=== PATIENT | female | born 1990 | race Caucasian/White ===

== ENCOUNTER 2021-05-20 13:38 | Emergency (ER) | payer MEDICAID ==
--- NOTE | 2021-05-20 16:17 | Emergency Department Report ---
- General Chief complaint: Skin/Abscess/Foreign Body Stated complaint: NECK PAIN Time Seen by Provider: 05/20/21 14:54 Source: patient, EMS Mode of arrival: Ambulatory Limitations: No Limitations - History of Present Illness Initial comments: 31-year-old female presents to the emergency room stating she believes she was bitten by a bug to her neck. Patient's not sure when this had happened but her boyfriend noticed it today. Patient denies any pain she is states that it does not itch much. Has no fever no chills no nausea no vomiting. Patient states she lives in a fpc and was brought in by EMS. Patient has a history of depression anxiety bipolar. Past surgeries cochlear implant nasal surgery and cholecystectomy complaint: insect bite/sting -: unknown Tetanus Up to Date: yes Location: neck (Posterior) Severity: mild Improves with: none Worsens with: none Context: other (Concern for insect bite) Associated symptoms: denies other symptoms - Related Data Allergies Allergy/AdvReac Type Severity Reaction Status Date / Time No Known Allergies Allergy Unverified 05/20/21 13:44 Abscess Boil HPI - HPI Chief Complaint: Skin/Abscess/Foreign Body Stated Complaint: NECK PAIN Time Seen by Provider: 05/20/21 14:54 Allergies/Adverse Reactions: Allergies Allergy/AdvReac Type Severity Reaction Status Date / Time No Known Allergies Allergy Unverified 05/20/21 13:44 ED Review of Systems ROS: Stated complaint: NECK PAIN Other details as noted in HPI Comment: All other systems reviewed and negative ED Past Medical Hx - Past Medical History Previous Medical History?: Yes Hx Psychiatric Treatment: Yes (depression, Anxiety, Bipolar disorder) - Surgical History Past Surgical History?: Yes Hx Cholecystectomy: Yes (-2020) Additional Surgical History: cochlear implant, Nasal surgery - Social History Smoking Status: Never Smoker Substance Use Type: Alcohol, Marijuana ED Physical Exam - General Limitations: No Limitations General appearance: alert, in no apparent distress - Head Head exam: Present: atraumatic, normocephalic - Eye Eye exam: Present: normal appearance - ENT ENT exam: Present: mucous membranes moist - Neck Neck exam: Present: full ROM, other (Rash to the posterior distal neck nontender to touch mild erythematous.). Absent: tenderness, lymphadenopathy - Respiratory Respiratory exam: Absent: accessory muscle use - Cardiovascular Cardiovascular Exam: Present: regular rate - Extremities Exam Extremities exam: Present: full ROM - Neurological Exam Neurological exam: Present: alert, oriented X3, normal gait - Psychiatric Psychiatric exam: Present: normal affect, normal mood - Skin Skin exam: Present: warm, dry, intact, normal color. Absent: rash ED Course Vital Signs 05/20/21 14:40 Temperature 98.5 F Pulse Rate 78 Respiratory 20 Rate Blood Pressure 114/58 O2 Sat by Pulse 97 Oximetry ED Medical Decision Making - Medical Decision Making 31-year-old female presents to the emergency room stating she believes she was bitten by a bug to her neck. Patient's not sure when this had happened but her boyfriend noticed it today. Patient denies any pain she is states that it does not itch much. Has no fever no chills no nausea no vomiting. Patient states she lives in a fpc and was brought in by EMS. Patient has a history of depression anxiety bipolar. Past surgeries cochlear implant nasal surgery and cholecystectomy Discussed with patient she can try some [id number] hydrocortisone. Follow-up with her primary care provider Critical care attestation.: If time is entered above; I have spent that time in minutes in the direct care of this critically ill patient, excluding procedure time. ED Disposition Clinical Impression: Rash and nonspecific skin eruption Disposition: DC-01 TO HOME OR SELFCARE Is pt being admited?: No Does the pt Need Aspirin: No Condition: Stable Instructions: Rash, Adult, [id number] Additional Instructions: You can use [id number] hydrocortisone cream 3 times a day. Tylenol or ibuprofen as needed for pain. Referrals: Your, primary care provider [Other] - 3-5 Days
== END 2021-05-20 16:51 | disposition home or self-care (01) ==
LOC: ED 13:38
CPT/HCPCS: 99283

== ENCOUNTER 2021-05-26 11:48 | Emergency (ER) | payer MEDICAID ==
--- NOTE | 2021-05-26 12:08 | Emergency Department Report ---
ED General Adult HPI - General Chief complaint: Dyspnea/Respdistress Stated complaint: SEIZURE Time Seen by Provider: 05/26/21 12:03 Source: patient Mode of arrival: Stretcher Limitations: No Limitations - History of Present Illness Initial comments: 31-year-old female, history of depression, anxiety, bipolar disorder, and asthma, presents to ED from her [place] [facility] for evaluation. EMS was called for seizure-like activity. Patient denies history of seizures. Patient is actively, purposefully, shaking her arms and head. When I tell patient to stop shaking, she does. Patient then states she felt like she was having an asthma attack earlier. She used her inhaler at the [place] [facility]. Patient has no other complaints. -: This afternoon Location: chest Improves with: medication Worsens with: none Associated Symptoms: shortness of breath. denies: cough, fever/chills - Related Data Previous Rx's Medication Instructions Recorded Last Taken Type Albuterol Sulfate [Proventil Hfa] 2 puff IH Q4HR PRN #1 hfa.aer.ad 05/26/21 Unknown Rx Azithromycin [Zithromax TAB] 250 mg PO QDAY 4 Days #4 tablet 05/26/21 Unknown Rx Benzonatate [Tessalon Perles] 100 mg PO Q8HR PRN #20 capsule 05/26/21 Unknown Rx Allergies Allergy/AdvReac Type Severity Reaction Status Date / Time Sulfa (Sulfonamide Allergy Anaphylaxis Verified 05/26/21 13:47 Antibiotics) ED Review of Systems ROS: Stated complaint: SEIZURE Other details as noted in HPI Comment: All other systems reviewed and negative Constitutional: denies: fever Respiratory: wheezing Cardiovascular: denies: chest pain ED Past Medical Hx - Past Medical History Previous Medical History?: Yes Hx Psychiatric Treatment: Yes (depression, Anxiety, Bipolar disorder) Hx Asthma: Yes Additional medical history: heart murmur - Surgical History Hx Cholecystectomy: Yes () Additional Surgical History: cochlear implant, Nasal surgery - Social History Smoking Status: Never Smoker Substance Use Type: Alcohol, Marijuana - Medications Home Medications: Home Medications Medication Instructions Recorded Confirmed Last Taken Type Albuterol Sulfate [Proventil Hfa] 2 puff IH Q4HR PRN #1 hfa.aer.ad 05/26/21 Unknown Rx Azithromycin [Zithromax TAB] 250 mg PO QDAY 4 Days #4 tablet 05/26/21 Unknown Rx Benzonatate [Tessalon Perles] 100 mg PO Q8HR PRN #20 capsule 05/26/21 Unknown Rx ED Physical Exam - General Limitations: No Limitations General appearance: alert, in no apparent distress - Head Head exam: Present: atraumatic, normocephalic - Eye Eye exam: Present: normal appearance, EOMI - ENT ENT exam: Present: mucous membranes moist - Neck Neck exam: Present: normal inspection - Respiratory Respiratory exam: Present: normal lung sounds bilaterally. Absent: respiratory distress - Cardiovascular Cardiovascular Exam: Present: regular rate, normal rhythm - GI/Abdominal GI/Abdominal exam: Present: soft. Absent: distended, tenderness - Extremities Exam Extremities exam: Present: normal inspection - Neurological Exam Neurological exam: Present: alert, oriented X3 - Psychiatric Psychiatric exam: Present: normal affect, normal mood - Skin Skin exam: Present: warm, dry, intact, normal color ED Course Vital Signs 05/26/21 05/26/21 05/26/21 12:00 13:49 14:44 Temperature 98.4 F Pulse Rate 90 78 90 Respiratory 18 17 17 Rate Blood Pressure 112/54 108/72 116/72 [Left] O2 Sat by Pulse 98 97 97 Oximetry ED Medical Decision Making - Lab Data Result diagrams: 05/26/21 12:10 05/26/21 12:10 - Radiology Data Radiology results: report reviewed, image reviewed - Medical Decision Making 41-year-old female presents to ED with pseudoseizure. When instructed to stop shaking, patient follows instructions. Patient ambulated to bathroom back to her room without assistance. Chest x-ray shows infiltrate. Patient is in no respiratory distress. O2 sats are normal. Labs are unremarkable. Patient given Rocephin and azithromycin here in the ED. She will be discharged with azithromycin. Outpatient follow-up advised, return precautions given. - Differential Diagnosis Pseudoseizure, pneumonia, asthma Critical care attestation.: If time is entered above; I have spent that time in minutes in the direct care of this critically ill patient, excluding procedure time. ED Disposition Clinical Impression: Pseudoseizure, Pneumonia Disposition: DC-01 TO HOME OR SELFCARE Is pt being admited?: No Condition: Stable Instructions: Community-Acquired Pneumonia, Adult, [id number], Bacterial Pneumonia (ED) Prescriptions: Albuterol Sulfate [Proventil Hfa] 2 puff IH Q4HR PRN #1 hfa.aer.ad PRN Reason: Wheezing Benzonatate [Tessalon Perles] 100 mg PO Q8HR PRN #20 capsule PRN Reason: Cough Azithromycin [Zithromax TAB] 250 mg PO QDAY 4 Days #4 tablet Referrals: PRIMARY CAREMD [Primary Care Provider] - 3-[address] [facility] [Provider Group] - 3-5 Days KELLIE WAHL MD [Staff Physician] - 3-5 Days Time of Disposition: 13:58
--- NOTE | 2021-05-26 12:26 | XRay Report ---
CHEST 1 VIEW INDICATION: sob. COMPARISON: None. FINDINGS: Support devices: None. Heart: Normal. Lungs/Pleura: There is diffuse opacification the left lower hemithorax with silhouetting of the left hemidiaphragm. Right lung is clear. IMPRESSION: 1. Consolidation in the left lower lobe concerning for pneumonia. Signer Name: Hany Reed MD Signed: 05/26/2021 12:21 PM Workstation Name: [id number]
[2021-05-26 12:46] LABS: Basophils % (Auto) 0.5 % (0.0-1.8); Eosinophils % (Auto) 0.7 % (0.0-4.3); Hematocrit 41.9 % (30.3-42.9); Hemoglobin 14.8 gm/dl (10.1-14.3); Lymphocytes % (Auto) 30.3 % (13.4-35.0); Mean Corpuscular HGB Conc 35 % (30-34); Mean Corpuscular Volume 87 fl (79-97); Monocytes # (Auto) 0.8 K/mm3 (0.0-0.8); Monocytes % (Auto) 11.6 % (0.0-7.3); Platelet Count 297 K/mm3 (140-440); Red Blood Count 4.82 M/mm3 (3.65-5.03); Red Cell Distribution Width 13.8 % (13.2-15.2)
[2021-05-26 13:05] LABS: Blood Urea Nitrogen 8 mg/dL (7-17); Calcium 9.3 mg/dL (8.4-10.2); Hemolysis Index 3
[2021-05-26 13:23] LABS: BUN/Creatinine Ratio 11
[2021-05-26] MEDS ORDERED: AZITHROMYCIN 250 MG TAB PO ONE (13:31)
[2021-05-26] MEDS ORDERED: LIDOCAINE-MPF (1%) 10 MG/1 ML VIAL 5 ML INFILTRATI ONE (13:31)
[2021-05-26 14:45] VITALS: BP 116/72
== END 2021-05-26 14:56 | disposition home or self-care (01) ==
LOC: ED 11:48
DX: J18.9 Pneumonia, unspecified organism (principal); R56.9 Unspecified convulsions; F32.9 Major depressive disorder, single episode, unspecified; J45.909 Unspecified asthma, uncomplicated; F12.10 Cannabis abuse, uncomplicated; Z90.49 Acquired absence of other specified parts of digestive tract; Z98.890 Other specified postprocedural states; Z79.899 Other long term (current) drug therapy; Z79.2 Long term (current) use of antibiotics; Z88.2 Allergy status to sulfonamides
CPT/HCPCS: 36415; 71045; 80048; 85025; 96372; 99284; J0696

== ENCOUNTER 2021-05-30 23:26 | Emergency (ER) | payer MEDICAID ==
[2021-05-31 01:23] VITALS: BP 115/76
--- NOTE | 2021-05-31 05:34 | Emergency Department Report ---
[facility] Chief Complaint: Eye Problems Stated Complaint: GENERAL UNWELL FEELING Side: Bilateral Severity: mild Symptoms: Yes Eye Itching, Yes Eye Redness, No Eye Pain, No Mucous Drainage, No Purulent Drainage, No Blurred Vision, No Preceding URI, No Contact Lens Use ED Review of Systems ROS: Stated complaint: GENERAL UNWELL FEELING Other details as noted in HPI Comment: All other systems reviewed and negative ED Past Medical Hx - Past Medical History Previous Medical History?: Yes Hx Psychiatric Treatment: Yes (depression, Anxiety, Bipolar disorder) Hx Asthma: Yes Additional medical history: heart murmur - Surgical History Past Surgical History?: Yes Hx Cholecystectomy: Yes (-2020) Additional Surgical History: cochlear implant, Nasal surgery - Social History Smoking Status: Never Smoker Substance Use Type: Alcohol, Marijuana - Medications Home Medications: Home Medications Medication Instructions Recorded Confirmed Last Taken Type Albuterol Sulfate [Proventil Hfa] 2 puff IH Q4HR PRN #1 hfa.aer.ad 05/26/21 Unknown Rx Azithromycin [Zithromax TAB] 250 mg PO QDAY 4 Days #4 tablet 05/26/21 Unknown Rx Benzonatate [Tessalon Perles] 100 mg PO Q8HR PRN #20 capsule 05/26/21 Unknown Rx Olopatadine HCl [Pataday 0.2%] 1 drop OP QDAY #1 drops 05/31/21 Unknown Rx [facility] Exam - Exam General: Vital signs noted. No distress. Alert and acting appropriately. Eye Exam: Both Injection, Neither Mucous Discharge, Neither Purulent Discharge, Neither Fluorescein Uptake, Neither Fluorescein Uptake (slit lamp), Neither Cell/Flare (slit lamp), Neither Corneal Edema, Neither Photophobia HEENT: No Nasal Congestion, No Pharyngeal Erythema Remainder of HEENT: Abnormal Lungs: Yes Clear Lung Sounds, Yes Good Air Exchange, No Wheezes, No Stridor, No Nasal Flaring Exam: 31-year-old female [facility] emerge department complaining itchy eyes when she wakes up in the morning with some injection and redness she was not evaluated emergency department. No discharge no blurry vision no loss of vision no fever, chills, sweats. ED Course Vital Signs 05/31/21 01:22 Temperature 97.8 F Pulse Rate 76 Respiratory 18 Rate Blood Pressure 115/76 O2 Sat by Pulse 95 Oximetry Critical care attestation.: If time is entered above; I have spent that time in minutes in the direct care of this critically ill patient, excluding procedure time. ED Disposition Clinical Impression: Conjunctivitis Disposition: DC-01 TO HOME OR SELFCARE Is pt being admited?: No Does the pt Need Aspirin: No Condition: Stable Instructions: Allergic Conjunctivitis, Adult, Hmcs-lb-Ofgm Prescriptions: Olopatadine HCl [Pataday 0.2%] 1 drop OP QDAY #1 drops Referrals: [facility] [Provider Group] - 3-5 Days
== END 2021-05-31 07:27 | disposition home or self-care (01) ==
LOC: ED 23:26
DX: H10.9 Unspecified conjunctivitis (principal); J45.909 Unspecified asthma, uncomplicated; F32.9 Major depressive disorder, single episode, unspecified; Z98.890 Other specified postprocedural states
CPT/HCPCS: 99282

== ENCOUNTER 2021-06-02 00:47 | Emergency (ER) | payer MEDICAID ==
[2021-06-02 02:14] LABS: Bilirubin,Urine NEG (Negative); Blood,Urine MOD (Negative); Color,Urine Yellow (Yellow); Mucus,Urine FEW /HPF; Protein,Urine <15 mg/dL mg/dL (Negative)
[2021-06-02 02:21] LABS: Basophils # (Auto) 0.1 K/mm3 (0.0-0.1); Basophils % (Auto) 0.5 % (0.0-1.8); Eosinophils # (Auto) 0.2 K/mm3 (0.0-0.4); Eosinophils % (Auto) 2.2 % (0.0-4.3); Hematocrit 43.2 % (30.3-42.9); Hemoglobin 14.3 gm/dl (10.1-14.3); Lymphocytes # (Auto) 2.7 K/mm3 (1.2-5.4); Lymphocytes % (Auto) 26.1 % (13.4-35.0); Mean Corpuscular HGB Conc 33 % (30-34); Mean Corpuscular Volume 90 fl (79-97); Monocytes # (Auto) 1.1 K/mm3 (0.0-0.8); Monocytes % (Auto) 10.7 % (0.0-7.3); Platelet Count 311 K/mm3 (140-440); Red Blood Count 4.82 M/mm3 (3.65-5.03); Red Cell Distribution Width 14.1 % (13.2-15.2)
[2021-06-02 02:40] LABS: Alanine Aminotransferase 19 units/L (7-56); Albumin 4.1 g/dL (3.9-5); BUN/Creatinine Ratio 17; Blood Urea Nitrogen 12 mg/dL (7-17); Calcium 9.5 mg/dL (8.4-10.2); Hemolysis Index 11
--- NOTE | 2021-06-02 07:58 | Emergency Department Report ---
ED Female HPI - General Chief complaint: Abdominal Pain Stated complaint: ABDOMINAL PAIN Time Seen by Provider: 06/02/21 07:01 Source: patient Mode of arrival: Ambulatory Limitations: No Limitations - History of Present Illness Initial comments: 31-year-old female presents to the emergency room complaining of abdominal pain that started last night. Patient states that she thinks she may be . Patient reports her last menstrual period 05/10/2021. Patient reports she has had some nausea but no vomiting and increase in appetite. She admits to increase in urination and urgency to the to void. States that she had a last bowel movement yesterday. She denies any fever chills no chest pain shortness of breath no hematuria. She does admit to having unprotected intercourse. She states she has a past medical history of STD and UTIs. MD Complaint: pelvic pain -: Last night Severity: mild Severity scale (0 -10): 3 Quality: cramping Consistency: intermittent Improves with: none Worsens with: none Are you Now?: No Last Menstrual Period: 05/10/21 EDC: 02/14/22 Associated Symptoms: abdominal pain. denies: vaginal discharge, vaginal bleeding, nausea/vomiting, fever/chills, hematuria, rash, seizure - Related Data Sexually active: Yes Previous Rx's Medication Instructions Recorded Last Taken Type Albuterol Sulfate [Proventil Hfa] 2 puff IH Q4HR PRN #1 hfa.aer.ad 05/26/21 Unknown Rx Azithromycin [Zithromax TAB] 250 mg PO QDAY 4 Days #4 tablet 05/26/21 Unknown Rx Benzonatate [Tessalon Perles] 100 mg PO Q8HR PRN #20 capsule 05/26/21 Unknown Rx Olopatadine HCl [Pataday 0.2%] 1 drop OP QDAY #1 drops 05/31/21 Unknown Rx Nitrofurantoin [place]/M-Cryst 100 mg PO Q12HR 7 Days #14 capsule 06/02/21 Unknown Rx [Macrobid CAP] Allergies Allergy/AdvReac Type Severity Reaction Status Date / Time Sulfa (Sulfonamide Allergy Anaphylaxis Verified 05/26/21 13:47 Antibiotics) ED Review of Systems ROS: Stated complaint: ABDOMINAL PAIN Other details as noted in HPI Comment: All other systems reviewed and negative ED Past Medical Hx - Past Medical History Previous Medical History?: Yes Hx Psychiatric Treatment: Yes (depression, Anxiety, Bipolar disorder) Hx Asthma: Yes Additional medical history: heart murmur - Surgical History Past Surgical History?: Yes Hx Cholecystectomy: Yes () Additional Surgical History: cochlear implant, Nasal surgery - Social History Smoking Status: Current Some Day Smoker Substance Use Type: None - Medications Home Medications: Home Medications Medication Instructions Recorded Confirmed Last Taken Type Albuterol Sulfate [Proventil Hfa] 2 puff IH Q4HR PRN #1 hfa.aer.ad 05/26/21 Unknown Rx Azithromycin [Zithromax TAB] 250 mg PO QDAY 4 Days #4 tablet 05/26/21 Unknown Rx Benzonatate [Tessalon Perles] 100 mg PO Q8HR PRN #20 capsule 05/26/21 Unknown Rx Olopatadine HCl [Pataday 0.2%] 1 drop OP QDAY #1 drops 05/31/21 Unknown Rx Nitrofurantoin [place]/M-Cryst 100 mg PO Q12HR 7 Days #14 capsule 06/02/21 Unknown Rx [Macrobid CAP] ED Physical Exam - General Limitations: No Limitations General appearance: alert, in no apparent distress - Head Head exam: Present: atraumatic, normocephalic - Eye Eye exam: Present: normal appearance - ENT ENT exam: Present: mucous membranes moist - Neck Neck exam: Present: normal inspection - Respiratory Respiratory exam: Present: normal lung sounds bilaterally. Absent: respiratory distress - Cardiovascular Cardiovascular Exam: Present: regular rate, normal rhythm. Absent: systolic murmur, diastolic murmur, rubs, gallop - GI/Abdominal GI/Abdominal exam: Present: soft, normal bowel sounds - Extremities Exam Extremities exam: Present: normal inspection - Back Exam Back exam: Present: normal inspection - Neurological Exam Neurological exam: Present: alert, oriented X3 - Psychiatric Psychiatric exam: Present: normal affect, normal mood - Skin Skin exam: Present: warm, dry, intact, normal color. Absent: rash ED Medical Decision Making - Lab Data Result diagrams: 06/02/21 02:00 06/02/21 02:00 - Medical Decision Making 31-year-old female presents to the emergency room complaining of abdominal pain that started last night. Patient states that she thinks she may be . Patient reports her last menstrual period 05/10/2021. Patient reports she has had some nausea but no vomiting and increase in appetite. She admits to increase in urination and urgency to the to void. States that she had a last bowel movement yesterday. She denies any fever chills no chest pain shortness of breath no hematuria. She does admit to having unprotected intercourse. She states she has a past medical history of STD and UTIs. Patient gender appears to have moderate amount of leukoesterase 10 WBC moderate amount of blood and haziness. test is negative. We will treat patient with Macrobid and have her follow-up with [facility]. Critical care attestation.: If time is entered above; I have spent that time in minutes in the direct care of this critically ill patient, excluding procedure time. ED Disposition Clinical Impression: UTI (urinary tract infection) Disposition: TO HOME OR SELFCARE Is pt being admited?: No Does the pt Need Aspirin: No Condition: Stable Instructions: Abdominal Pain (ED), Urinary Tract Infection, Adult Additional Instructions: Complete antibiotics as prescribed. Follow-up with [facility]. Prescriptions: Nitrofurantoin [place]/M-Cryst [Macrobid CAP] 100 mg PO Q12HR 7 Days #14 capsule Referrals: [facility] [Provider Group] - 3-5 Days Forms: Work/School Release Form(ED)
[2021-06-02 08:21] VITALS: BP 132/78
== END 2021-06-02 08:20 | disposition home or self-care (01) ==
LOC: ED 00:47
DX: N39.0 Urinary tract infection, site not specified (principal); F32.9 Major depressive disorder, single episode, unspecified; J45.909 Unspecified asthma, uncomplicated; F17.200 Nicotine dependence, unspecified, uncomplicated; Z90.49 Acquired absence of other specified parts of digestive tract; Z98.890 Other specified postprocedural states; Z79.899 Other long term (current) drug therapy; Z88.2 Allergy status to sulfonamides
CPT/HCPCS: 36415; 80053; 81001; 84703; 85025; 87086

== ENCOUNTER 2021-06-04 21:29 | Emergency (ER) | payer MEDICAID ==
[2021-06-05] MEDS ORDERED: ACETAMINOPHEN 500 MG TAB PO ONE (01:17)
[2021-06-05 01:22] VITALS: BP 120/63
--- NOTE | 2021-06-05 02:07 | XRay Report ---
RIGHT WRIST 3 VIEWS INDICATION / CLINICAL INFORMATION: Pain RT WRIST PAIN COMPARISON: None available. FINDINGS: BONES / JOINT(S): No acute fracture or subluxation. No significant arthritis. SOFT TISSUES: No significant abnormality. ADDITIONAL FINDINGS: None. Signer Name: Shreyas Du MD Signed: 06/05/2021 2:02 AM Workstation Name: [id number]
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
== END 2021-06-05 03:05 | disposition home or self-care (01) ==
LOC: ED 21:29
DX: S63.501A Unspecified sprain of right wrist, initial encounter (principal); S66.911A Strain of unspecified muscle, fascia and tendon at wrist and hand level, right hand, initial encounter; F17.200 Nicotine dependence, unspecified, uncomplicated; F31.9 Bipolar disorder, unspecified; F41.9 Anxiety disorder, unspecified; J45.909 Unspecified asthma, uncomplicated; Z79.899 Other long term (current) drug therapy; Z88.2 Allergy status to sulfonamides; Z98.890 Other specified postprocedural states; X58.XXXA Exposure to other specified factors, initial encounter; Y93.89 Activity, other specified; Y92.89 Other specified places as the place of occurrence of the external cause; Y99.8 Other external cause status